=== PATIENT | female | born 1975 | race Two or more races ===

== ENCOUNTER 2019-03-27 12:30 | Emergency (ER) | payer MEDICAID ==
[~2019-03-27] VITALS: Ht 127 cm; Wt 63.5 kg
[2019-03-27] MEDS ORDERED: MORPHINE SULFATE INJ 2 MG/ML DISP.SYRIN IV ONE ×2 (13:00→15:00)
[2019-03-27] MEDS ORDERED: IV NS 0.9% 1,000 ML BAG IV ONE (13:00)
[2019-03-27] MEDS ORDERED: ONDANSETRON HCL/PF 4 MG/2 ML VIAL IVP ONE (13:00)
[2019-03-27] MEDS ORDERED: FAMOTIDINE/PF INJ 20 MG/2 ML VIAL IV ONE ×2 (13:00→13:08)
[2019-03-27] MEDS ORDERED: MORPHINE SULFATE INJ 4 MG/ML DISP.SYRIN ONE (13:08)
[2019-03-27] MEDS ORDERED: ONDANSETRON HCL/PF 4 MG/2 ML VIAL ONE (13:08)
[2019-03-27 13:12] LABS: BASOPHILS # (AUTO) 0.1 /CMM (0.0-0.2); BASOPHILS % (AUTO) 1.1 % (0.0-2.0); EOSINOPHILS % (AUTO) 5.2 % (0.0-6.0); HEMATOCRIT 35 % (33-45); HEMOGLOBIN 11.7 g/dL (11.5-14.8); LYMPHOCYTES # (AUTO) 1.9 /CMM (0.8-4.8); LYMPHOCYTES % (AUTO) 23.8 % (20.0-44.0); MEAN CORPUSCULAR HGB CONC 33 g/dl (31.0-36.0); MEAN CORPUSCULAR VOLUME 80 fL (82-100); MONOCYTES # (AUTO) 0.6 /CMM (0.1-1.30); MONOCYTES % (AUTO) 7.9 % (2.0-12.0); NEUTROPHILS # (AUTO) 4.9 /CMM (1.8-8.9); PLATELET COUNT (AUTO) 297 /CMM (150-450); RED BLOOD CELL COUNT(AUTO) 4.44 MIL/uL (4.0-5.2); WHITE BLOOD COUNT (AUTO) 7.8 K/uL (4.3-11.0)
[2019-03-27 13:19] LABS: CALCIUM, SERUM 8.4 mg/dL (8.5-10.1); CARBON DIOXIDE 27 mmol/L (21-32); CHLORIDE 106 mmol/L (98-107); CREATININE 0.7 mg/dL (0.6-1.3); GLUCOSE 87 mg/dL (74-106); POTASSIUM 3.6 mmol/L (3.5-5.1); SODIUM SERUM 140 mmol/L (136-145); UREA NITROGEN, BLOOD 14 mg/dL (7-18)
--- NOTE | 2019-03-27 13:20 | NUR ---
Line started on R ac g 20, pt tolerated well
[2019-03-27 13:29] LABS: APPEARANCE,URINE Slightly Cloudy (CLEAR); BILIRUBIN,URINE Negative (NEGATIVE); BLOOD, URINE Negative Ery/uL (NEGATIVE); COLOR,URINE Light yellow (YELLOW); KETONES,URINE Negative (NEGATIVE); LEUKOCYTE ESTERASE ,URINE Negative (NEGATIVE); NITRITE, URINE Negative (NEGATIVE); PH,URINE 8.5 (5.0-8.0); PROTEIN,URINE Negative (NEGATIVE); UGLUCOSE Negative (NEGATIVE); UROBILINOGEN,URINE 0.2 EU/dL (0.2)
[2019-03-27 13:33] LABS: ALANINE AMINOTRANSFERASE 41 U/L (12-78); ALBUMIN 3.2 g/dL (3.4-5.0); ALKALINE PHOSPHATASE 80 U/L (46-116); ASPARTATE AMINOTRANSFERASE 23 U/L (15-37); BILIRUBIN,DIRECT 0.1 mg/dL (0.0-0.2); BILIRUBIN,TOTAL 0.9 mg/dL (0.2-1.0); LIPASE 208 U/L (73-393)
--- NOTE | 2019-03-27 14:57 | NUR ---
IV removed. Catheter intact and site benign. Pressure and 4x4 applied to site. No bleeding noted.
--- NOTE | 2019-03-27 14:57 | NUR ---
Patient discharged to home in stable condition. Written and verbal after care instructions given. Patient verbalizes understanding of instruction.
[2019-03-27 14:59] VITALS: BP 138/78
== END 2019-03-27 15:00 | disposition home or self-care (01) ==
LOC: ER 12:33
DX: R10.13 Epigastric pain (principal); R11.2 Nausea with vomiting, unspecified; R19.7 Diarrhea, unspecified; R10.11 Right upper quadrant pain
CPT/HCPCS: 36415; 76705; 80048; 80076; 81001; 83690; 84484; 84703; 85025; 93005; 96361; 96374; 96375; 99284; J2270; J2405; J3490; J7030; 81000-TC

== ENCOUNTER 2021-03-30 14:39 | Emergency (ER) | payer MEDICAID ==
[~2021-03-30] VITALS: Ht 144.8 cm; Wt 65.8 kg
--- NOTE | 2021-03-30 15:00 | NUR ---
tooth ache, r sided facial swelling x 5 days. taking amoxicillin/motrin no relief. Patient a/ox4, breathing even and unlabored, no sob noted.
[2021-03-30 16:09] LABS: BASOPHILS # (AUTO) 0.1 K/uL (0.0-0.2); BASOPHILS % (AUTO) 0.8 % (0.0-2.0); EOSINOPHILS % (AUTO) 1.3 % (0.0-6.0); HEMATOCRIT 37 % (33-45); LYMPHOCYTES # (AUTO) 1.5 K/uL (0.8-4.8); LYMPHOCYTES % (AUTO) 18.6 % (20.0-44.0); MEAN CORPUSCULAR HGB CONC 33 g/dl (31.0-36.0); MEAN CORPUSCULAR VOLUME 81 fL (82-100); MONOCYTES # (AUTO) 0.9 K/uL (0.1-1.30); MONOCYTES % (AUTO) 10.9 % (2.0-12.0); NEUTROPHILS # (AUTO) 5.7 K/uL (1.8-8.9); NEUTROPHILS % (AUTO) 68.4 % (43.0-81.0); PLATELET COUNT (AUTO) 268 K/uL (150-450); RED BLOOD CELL COUNT(AUTO) 4.55 MIL/uL (4.0-5.2); WHITE BLOOD COUNT (AUTO) 8.3 K/uL (4.3-11.0)
[2021-03-30] MEDS ORDERED: IOHEXOL-300 100 ML VIAL IV ONE (17:10)
[2021-03-30] MEDS ORDERED: IV NS 0.9% 250 ML IV ONE (17:10)
[2021-03-30 17:20] LABS: CALCIUM, SERUM 8.7 mg/dL (8.5-10.1); CREATININE 0.7 mg/dL (0.6-1.3); POTASSIUM 3.8 mmol/L (3.5-5.1)
--- NOTE | 2021-03-30 17:39 | NUR ---
TAKEN TO CT.
[2021-03-30] MEDS ORDERED: CLINDAMYCIN 900 MG in IV D5W 100 ML IV ONE (18:00)
--- NOTE | 2021-03-30 18:10 | NUR ---
PATIENT IN BED, DENIES PAIN AT THIS TIME. KEPT COMFORTABLE.
[2021-03-30] MEDS ORDERED: CLINDAMYCIN 900 MG in IV D5W 50 ML IV ONE (18:30)
--- NOTE | 2021-03-30 19:00 | NUR ---
IV removed. Catheter intact and site benign. Pressure and 4x4 applied to site. No bleeding noted.
[2021-03-30] MEDS ORDERED: CLIN300C12 PO (19:10)
[2021-03-30 19:17] VITALS: BP 155/110
--- NOTE | 2021-03-30 19:18 | NUR ---
Patient discharged to home in stable condition. Written and verbal after care instructions given. Patient verbalizes understanding of instruction.
== END 2021-03-30 19:18 | disposition home or self-care (01) ==
LOC: ER 14:39
DX: K04.7 Periapical abscess without sinus (principal)
CPT/HCPCS: 36415; 70491; 80048; 84702; 85025; 96365; 99285; J3490; J7050; J7060; Q9967

== ENCOUNTER 2023-01-15 18:57 | Emergency (ER) | payer MEDICAID ==
[~2023-01-15] VITALS: Ht 149.9 cm; Wt 68.0 kg
[~2023-01-15 18:57] MED LIST: CLIN300C12 PO
[2023-01-15 19:36] VITALS: BP 135/87
--- NOTE | 2023-01-15 19:36 | NUR ---
BIBSELF FROM HOME C/O L EAR ACHE X4 DAYS. PT A/OX4. TOLERATING R/A WELL WITH NO RESP DISRESS. SAFETY MEASURES IN PLACE.
[2023-01-15] MEDS ORDERED: DEXAMETHASONE SOD PHOSPHATE 4 MG/ML VIAL IM ONE (20:00)
[2023-01-15] MEDS ORDERED: DEXAMETHASONE SOD PHOSPHATE 10 MG/ML VIAL ONE (20:01)
== END 2023-01-15 21:04 | disposition home or self-care (01) ==
LOC: ER 19:02
DX: J06.9 Acute upper respiratory infection, unspecified (principal); H65.92 Unspecified nonsuppurative otitis media, left ear; J04.0 Acute laryngitis; Z79.2 Long term (current) use of antibiotics; Z20.822 Contact with and (suspected) exposure to COVID-19
CPT/HCPCS: 99283; 87426; 96372; 87880; 82962; J1100; C9803; 86403-TC

== ENCOUNTER 2024-05-01 11:24 | Emergency (ER) | payer MEDICAID, OTHER ==
[~2024-05-01] VITALS: Ht 144.8 cm; Wt 69.4 kg
[2024-05-01 13:50] LABS: PREGNANCY TEST URINE QUAL NEGATIVE (NEGATIVE)
[2024-05-01 13:55] VITALS: BP 145/81; TEMP 98.2; O2SAT 100
== END 2024-05-01 13:56 | disposition home or self-care (01) ==
LOC: ER 11:29
DX: S46.811A Strain of other muscles, fascia and tendons at shoulder and upper arm level, right arm, initial encounter (principal); S16.1XXA Strain of muscle, fascia and tendon at neck level, initial encounter; S20.211A Contusion of right front wall of thorax, initial encounter; R10.2 Pelvic and perineal pain; Z98.890 Other specified postprocedural states; Z79.899 Other long term (current) drug therapy; Z60.2 Problems related to living alone; W18.39XA Other fall on same level, initial encounter; Y93.89 Activity, other specified; Y92.89 Other specified places as the place of occurrence of the external cause; Y99.8 Other external cause status
CPT/HCPCS: 70450-TC; 71100-TC; 72125-TC; 73564-TC; 73610-TC; 84703-TC

== ENCOUNTER 2024-10-13 21:33 | Emergency (ER) | payer OTHER ==
[~2024-10-13] VITALS: Ht 127 cm; Wt 68.0 kg
[2024-10-14] MEDS ORDERED: IBUPROFEN 400 MG TABLET ONE (00:31)
[2024-10-14] MEDS: IBUPROFEN 400 MG TABLET PO ONE (00:35)
[2024-10-14 01:56] VITALS: BP 134/87; TEMP 98; O2SAT 99
== END 2024-10-14 01:58 | disposition home or self-care (01) ==
LOC: ER 21:45
DX: S13.4XXA Sprain of ligaments of cervical spine, initial encounter (principal); S33.5XXA Sprain of ligaments of lumbar spine, initial encounter; S20.219A Contusion of unspecified front wall of thorax, initial encounter; S09.8XXA Other specified injuries of head, initial encounter; M54.50 Low back pain, unspecified; Z60.2 Problems related to living alone; V43.62XA Car passenger injured in collision with other type car in traffic accident, initial encounter; Y93.89 Activity, other specified; Y92.89 Other specified places as the place of occurrence of the external cause; Y99.8 Other external cause status
CPT/HCPCS: 70450-TC; 71100-TC; 72125-TC; 72131-TC

== ENCOUNTER 2024-11-29 18:17 | Emergency (ER) | payer OTHER ==
[~2024-11-29] VITALS: Ht 162.6 cm; Wt 69.4 kg
[2024-11-29] MEDS: ACETAMINOPHEN ES 500 MG TABLET PO ONE (19:00)
[2024-11-29] MEDS ORDERED: IOHEXOL-300 100 ML VIAL IV ONE (19:09)
[2024-11-29] MEDS ORDERED: IV NS 0.9% 250 ML IV ONE (19:09)
[2024-11-29] MEDS ORDERED: ACETAMINOPHEN ES 500 MG TABLET ONE (19:14)
[2024-11-29 19:16] LABS: APPEARANCE,URINE SLIGHTLY CLOUDY (CLEAR)
[2024-11-29 19:17] LABS: COLOR,URINE LIGHT RED (YELLOW)
[2024-11-29 19:18] LABS: PREGNANCY TEST URINE QUAL NEGATIVE (NEGATIVE)
[2024-11-29] MEDS: IV NS 0.9% 1,000 ML BAG IV ONE (19:28)
[2024-11-29 19:37] LABS: CREATININE 0.8 mg/dL (0.6-1.3); POTASSIUM 3.6 mmol/L (3.5-5.1)
[2024-11-29 19:42] LABS: CALCIUM, SERUM 9.2 mg/dL (8.5-10.1)
[2024-11-29 19:43] LABS: RBC,URINE 51-80 /HPF (0-2)
[2024-11-29 19:45] LABS: BACTERIA,URINE Moderate /HPF (None Seen); SQUAMOUS EPITHELIAL CELL,UR Many /HPF (None Seen)
[2024-11-29] MEDS ORDERED: IBUP-1957 PO (21:21)
[2024-11-29] MEDS ORDERED: CYCL5TAB PO (21:21)
[2024-11-29 21:36] VITALS: BP 109/85; TEMP 98.3; O2SAT 98
== END 2024-11-29 21:37 | disposition home or self-care (01) ==
LOC: ER 18:19
DX: R31.9 Hematuria, unspecified (principal); M54.50 Low back pain, unspecified; R20.2 Paresthesia of skin; Z79.1 Long term (current) use of non-steroidal anti-inflammatories (NSAID); Z60.2 Problems related to living alone; V43.02XA Car driver injured in collision with other type car in nontraffic accident, initial encounter; Y93.89 Activity, other specified; Y92.488 Other paved roadways as the place of occurrence of the external cause; Y99.8 Other external cause status
CPT/HCPCS: 99285; 74177; 96360; 80048; 84703; 81001; 36415; J7030; J7050; Q9967

== ENCOUNTER 2025-05-30 16:18 | Emergency (ER) | payer OTHER ==
[~2025-05-30] VITALS: Ht 142.2 cm; Wt 69.4 kg
[~2025-05-30 16:18] MED LIST changes: +CYCL5TAB PO; +IBUP-1957 PO
[2025-05-30 16:24] VITALS: BP 154/86; TEMP 98.2; O2SAT 98
[2025-05-30] MEDS ORDERED: AMOX500C2 PO (16:35)
[2025-05-30] MEDS: AMOXICILLIN TRIHYDRATE 500 MG CAPSULE PO ONE (17:00)
[2025-05-30] MEDS ORDERED: AMOXICILLIN TRIHYDRATE 250 MG CAPSULE ONE (17:41)
== END 2025-05-30 18:32 | disposition home or self-care (01) ==
LOC: ER 17:30
DX: H66.92 Otitis media, unspecified, left ear (principal); R51.9 Headache, unspecified; H53.8 Other visual disturbances; R07.9 Chest pain, unspecified; R06.02 Shortness of breath; Z79.1 Long term (current) use of non-steroidal anti-inflammatories (NSAID)